=== PATIENT | female | born 1995 | race Caucasian/White ===

== ENCOUNTER 2019-03-06 15:29 | Emergency (ER) | payer MEDICAID, OTHER ==
[~2019-03-06] VITALS: Ht 167.6 cm; Wt 68.2 kg
[2019-03-06 17:35] LABS: CLARITY,URINE SLIGHTLY CLOUDY (Clear); COLOR,URINE YELLOW (Yellow); GLUCOSE, URINE NEGATIVE (Neg); KETONES,URINE NEGATIVE (Neg); LEUKOCYTE ESTERASE ,URINE NEGATIVE (Neg); NITRITES, URINE NEGATIVE (Neg); OCCULT BLOOD,URINE NEGATIVE (Neg); PROTEIN,URINE NEGATIVE (Neg); URINE HCG POSITIVE (NEG); UROBILINOGEN,URINE 0.2 E.U/dL (0.2-1.0)
[2019-03-06 17:59] LABS: UA COLLECTION TYPE VOIDED
[2019-03-06 18:12] LABS: BACTERIA,URINE FEW /HPF (Neg); MUCUS STRANDS MODERATE /LPF (Neg); RBC,URINE NONE SEEN /HPF (0-2); SQUAMOUS EPITHELIAL CELL,UR FEW /LPF (FEW); WBC,URINE 0-4 /HPF (0-4)
[2019-03-06] MEDS ORDERED: CefTRIAXone 250MG inj IM ONE (20:15)
[2019-03-06] MEDS ORDERED: metroNIDAZOLE 500mg tablet PO ONE (20:15)
[2019-03-06] MEDS ORDERED: azithromycin 250mg tablet PO ONE (20:15)
[2019-03-06] MEDS ORDERED: CefTRIAXone 250MG IM Kit w/LIDOcaine IM ONE ×2 (20:20→21:50)
--- NOTE | 2019-03-06 21:47 | NUR ---
1537:Pt escorted by [employer] [facility] to ED w/ accompaniment by Joslyn Menon [id number]. [facility] pt advocate Jemima present with pt verbal consent. 1630: Pt verbalized consent for SART. Reiterated consent ofr [facility] pt advocate. Wanda Manuel, RN observing only;SANE [employer]. 1650: Written consent obtained after process explained and questions answered. SART exam underway. 5: WARREN Diggs performed medical exam 1930: prophylactic STD medications administered after education provided including adverse reactions; pt 18wks . 1944: Pt discharged after verbalizing understanding of dc poc including importance of f/u with [facility] for deferred HIV/AIDs testing and s/s warranting a return ed visit. NOTE: [employer] [facility] will pharmacy picking tech evidence kit @ 0630 03/07/19 at which time RADS will be mailed also. This case is being sought by [employer] and included collaboration with Joslyn Menon. Exam billing to be paid by [employer] as this exam falls outside the 92-hr window.
[2019-03-06 22:02] VITALS: BP 110/70
--- NOTE | 2019-03-07 06:36 | NUR ---
Evidence picked up by [facility] Erlin Welch.
== END 2019-03-06 19:45 | disposition home or self-care (01) ==
LOC: EEVIPCON 15:30 → ER 15:30
DX: O9A.412 Sexual abuse complicating pregnancy, second trimester (principal); Z3A.20 20 weeks gestation of pregnancy; Z88.0 Allergy status to penicillin
CPT/HCPCS: 81001; 81025; 96372; 99283; J0696